=== PATIENT | female | born 1990 | race Caucasian/White ===

== ENCOUNTER 2024-03-04 17:29 | Inpatient (IN) ==
[2024-03-04] MEDS ORDERED: Buffered Lidocaine 1% SYRIN 1 ml INTRADERM ONE (17:54)
[2024-03-04] MEDS ORDERED: Lidocaine 1% VIAL 10 MG/ML 30 ML VIAL INJ PRN (17:54)
[2024-03-04] MEDS: Lactated Ringers 1000 ml BAG 1,000 ML IV ONE (18:30)
[2024-03-04] MEDS: Lactated Ringers 1000 ml BAG 1,000 ML IV SCH (18:55)
[2024-03-04 19:12] LABS: ABS Monocytes 0.4 10^3/uL (0.0-0.9); ABS Neutrophils 15.7 10^3/uL (1.5-7.6); Hematocrit 33.8 % (35-45); Hemoglobin 11.4 g/dL (11.5-14.3); Lymphocyte % 5.9 %; Mean Corpuscular Hgb Conc 33.7 g/dL (31-36); Mean Corpuscular Volume 85.9 fL (80-97); Mean Platelet Volume 9.2 fL (7.5-11.2); Platelet Count 245 10^3/uL (150-450); Red Blood Count 3.94 10^6/uL (3.63-4.92); Red Cell Distribution Width 14.6 % (12-17); White Blood Count 17.2 10^3/uL (3.8-11.8)
[2024-03-04] MEDS ORDERED: Lidocaine 1.5% EPI 1:200,000 30 ML SDV ONE (19:17)
[2024-03-04] MEDS ORDERED: fentaNYL 100 mcg/2 ml 50 MCG/ML VIAL ONE (19:26)
[2024-03-04] MEDS ORDERED: Bupivacaine 0.25% SDV PF 10 ML VIAL INJ ONE (19:26)
[2024-03-04] MEDS ORDERED: Sodium Citrate/Citric Acid LIQ 15 ML UDC PO PRN (20:31)
[2024-03-04] MEDS ORDERED: Lactated Ringers 1000 ml BAG 1,000 ML IV ONE (20:31)
[2024-03-04] MEDS ORDERED: Lactated Ringers 1000 ml BAG 1,000 ML IV SCH ×2 (21:00)
[2024-03-04] MEDS: OBEPIDURAL (200 ML) 200 ML EPIDURAL ONE (21:00)
[2024-03-04] MEDS ORDERED: OBEPIDURAL (200 ML) 200 ML EPIDURAL SCH (21:00)
[2024-03-04 21:14] LABS: Urine Appearance Clear; Urine Bilirubin Negative (Negative); Urine Blood Negative (Negative); Urine Color Yellow; Urine Glucose Negative (Negative); Urine Ketones 4+ (Negative); Urine Nitrite Negative (Negative); Urine Protein 1+ (>=30 mg/dL) (Negative); Urine Urobilinogen Negative (Negative)
[2024-03-04 21:25] LABS: Urine Bacteria Absent /HPF (Absent); Urine Red Blood Cell Trace(0-2/hpf) /HPF (0-Trace); Urine Squamous Epithelial Cell Present /HPF (Absent); Urine White Blood Cell Trace(0-5/hpf) /HPF (0-Trace)
[2024-03-04 21:27] LABS: Urine Benzodiazepine Screen None Detected (None Detect); Urine Cannabinoids Screen None Detected (None Detect); Urine Opiates Screen None Detected (None Detect)
[2024-03-04] MEDS ORDERED: Oxytocin in LR 0 MILLI.UNIT/0 ML BAG IV ONE (23:22)
[2024-03-05] MEDS ORDERED: Glycerin ADULT 2.4 gm SUPP PR PRN (02:01)
[2024-03-05] MEDS ORDERED: Oxytocin in LR 20,000 MILLI.UNIT/1,000 ML BAG IV SCH (02:05)
[2024-03-05] MEDS: Witch Hazel PAD JAR TOPICAL PRN (02:58)
[2024-03-05] MEDS: Dibucaine 1% OINT 28.35 GM TUBE PR PRN (02:58)
[2024-03-05] MEDS ORDERED: Lactated Ringers 1000 ml BAG 1,000 ML IV SCH (03:00)
[2024-03-06 07:37] LABS: ABS Eosinophils 0.1 10^3/uL (0.0-0.5); ABS Lymphocytes 1.8 10^3/uL (1.0-4.8); ABS Monocytes 0.7 10^3/uL (0.0-0.9); ABS Neutrophils 9.1 10^3/uL (1.5-7.6); ABS Nucleated RBC 0.02 10^3/ul; Eosinophil % 0.9 %; Hematocrit 28.7 % (35-45); Hemoglobin 9.7 g/dL (11.5-14.3); Lymphocyte % 15.5 %; Mean Corpuscular Hemoglobin 29.3 pg (27-33); Mean Corpuscular Hgb Conc 33.6 g/dL (31-36); Mean Corpuscular Volume 87.2 fL (80-97); Mean Platelet Volume 8.4 fL (7.5-11.2); Nucleated Red Blood Cells % 0.1 %/100WBC (0.0-0.8); Platelet Count 199 10^3/uL (150-450); Red Blood Count 3.29 10^6/uL (3.63-4.92); Red Cell Distribution Width 14.7 % (12-17); White Blood Count 11.8 10^3/uL (3.8-11.8)
[2024-03-06] MEDS: RHO D Immune Globulin (HUMAN) 300 MCG = 1,500 I.U. INJ IM PRN (07:49)
[2024-03-07 07:58] VITALS: BP 119/81
== END 2024-03-07 13:48 | disposition home or self-care (01) | DRG 560 ==
LOC: MCHOBOUT 17:29 → MCHOB 17:48
PROVIDERS: ADMIT Advanced Practice Midwife; ATTEND Advanced Practice Midwife